=== PATIENT | male | born 1940 | race Caucasian/White ===

== ENCOUNTER 2019-12-30 14:52 | Outpatient (CLI) | payer MEDICARE, OTHER, SELFPAY ==
[2019-12-30 16:20] LABS: Prostate Specific Antigen 2.5 ng/mL (< OR = 4.0)
== END 2019-12-30 14:53 | disposition home or self-care (01) ==
LOC: ANHLAB 15:01
PROVIDERS: PCP Emergency Medicine; Visit Provider Urology
DX: C61 Malignant neoplasm of prostate (principal)
CPT/HCPCS: 36415; 84153